=== PATIENT | female | born 1945 | race Caucasian/White ===

== ENCOUNTER 2018-01-28 20:51 | Emergency (ER) | payer OTHER ==
[~2018-01-28 20:51] MED LIST: POLYTRIM O200 GTT/BO OPH
--- NOTE | 2018-01-28 21:50 | RADIOLOGY REPORT ---
EXAMINATION: XR FOOT, LEFT CLINICAL INFORMATION: Stress fracture. Pain to the outer aspect of left foot. No injury. COMPARISON: None TECHNIQUE: AP, lateral, and oblique views of the left foot. FINDINGS: There is deformity of the distal shaft of the first metatarsal. Question prior fracture or hallux valgus repair. 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 No acute fracture seen. Normal tarsal metatarsal alignment. No periosteal reaction or cortical thickening to suggest stress fracture. IMPRESSION: No acute osseous abnormality identified. Deformity of the distal shaft of the first metatarsal, possibly from prior fracture or hallux valgus repair.
[2018-01-28] MEDS ORDERED: CLARITIN10 M1 PO (22:30)
--- NOTE | 2018-01-28 22:57 | ED ANKLE/FOOT INJURY COMPLAINT ---
History of Present Illness General Chief Complaint: Lower Extremity Problems Stated Complaint: FOOT PAIN/SWELLING X2DAYS Source: patient Exam Limitations: no limitations Vital Signs & Intake/Output Vital Signs & Intake/Output Vital Signs Date Time Temp Pulse Resp B/P B/P Pulse O2 O2 Flow FiO2 Mean Ox Delivery Rate 01/28 2315 134/78 01/28 2248 98.0 64 18 97 Room Air 01/28 2116 98.8 82 20 132/79 98 Allergies Coded Allergies: Penicillins (FULL BODY SWELLING 01/28/18) aspirin (GI BURNING, CRAMPING, VOMITING 01/28/18) lidocaine (HIVES 01/28/18) tetanus and diphtheria toxoids (LOCALIZED SWELLING 01/28/18) Reconcile Medications Loratadine (Claritin) 10 MG TABLET 1 TAB PO DAILY ALLERGIES (Reported) Tylenol With Codeine (Tylenol With Codeine #3 Tablet) 300 MG-30 MG TABLET 1 TAB PO Q4-6 PRN PRN pain Triage Note: PER PT 2 DAY HX OF L FOOT PAIN NOW SWELLING REPORTS OUTER ASPECT BY 5TH TOE DENIES INJURY Triage Nurses Notes Reviewed? yes Duration: day(s): (2-3), changing over time, continues in ED, getting worse Timing: single episode today Severity: mild, moderate Severity Numbers: 7 Pain/Injury Location: Left: Foot. Method of Injury: unknown No Modifying Factors: none Associated Symptoms: swelling LMP (ages 10-50): unknown : No Patient currently breastfeeds: No HPI: 72-year-old female no past medical history presents for evaluation of pain in her left foot. Patient states symptoms started about 2 days ago and has been getting worse. The pain is located the dorsum of the foot over the first metatarsal. There was no known trauma or triggering event. The pain is worse with movement but she is able to walk and bear weight. She did not take any medicine for this. No fevers spreading redness numbness or tingling. No knee pain or hip pain. (Germán Berg) Past History Travel History Traveled to [place] past 21 day No Medical History Any Pertinent Medical History? see below for history Neurological: NONE EENT: NONE Cardiovascular: NONE Respiratory: NONE Gastrointestinal: NONE Hepatic: NONE Renal: NONE Musculoskeletal: NONE Psychiatric: NONE Endocrine: NONE Surgical History Surgical History: non-contributory Psychosocial History What is your primary language Libyan Tobacco Use: Never used Family History Hx Contributory? No (Germán Berg) Review of Systems Review of Systems Constitutional: Reports: no symptoms. EENTM: Reports: no symptoms. Respiratory: Reports: no symptoms. Cardiovascular: Reports: no symptoms. GI: Reports: no symptoms. Genitourinary: Reports: no symptoms. Musculoskeletal: Reports: see HPI, joint pain, joint swelling. Skin: Reports: no symptoms. Neurological/Psychological: Reports: no symptoms. Hematologic/Endocrine: Reports: no symptoms. Immunologic/Allergic: Reports: no symptoms. All Other Systems: Reviewed and Negative (Germán Berg) Physical Exam Physical Exam General Appearance: well developed/nourished, no apparent distress, alert, awake Head: atraumatic, normal appearance Eyes: Bilateral: normal appearance, EOMI. Ears, Nose, Throat: hearing grossly normal Neck: normal inspection, supple, full range of motion Cardiovascular/Respiratory: no respiratory distress Back: normal inspection, normal range of motion Leg/Knee/Thigh Left: normal range of motion, normal inspection Leg/Knee/Thigh Right: normal range of motion, normal inspection Ankle Left: THERE IS PAIN TO PALPATION IN THE AREA OF THE LATERAL MALLEOLUS. mILD SOFT TISSUE SWELLING. nO BRUISING NO CREPITUS. fULL RANGE OF MOTION OF THE ANKLE IS INTACT Ankle Right: normal inspection, normal range of motion Foot Left: THERE IS MILD SOFT TISSUE SWELLING OF THE DORSUM OF THE FOOT. tHERE IS TENDERNESS TO PALPATION OVER THE FIRST AND SECOND METATARSALS. fULL RANGE OF MOTION OF THE FOOT IS INTACT WITH PAIN. nEUROVASCULAR SUPPLY INTACT Foot Right: normal inspection, normal range of motion Neuro/Vascular: normal motor function, normal sensation Tendon: normal tendon function Psychiatric: awake, alert, oriented x 3 Skin: intact, normal color, warm/dry (Germán Berg) Progress Differential Diagnosis: cellulitis, septic arthritis, gout, fracture, dislocation, sprain, contusion Plan of Care: Orders Procedure Date/time Status Durable Medical Equipment 01/28 2229 Active Patient seen and evaluated. She has pain and mild soft tissue swelling of the dorsum of the foot and lateral malleolus. No known trauma. Neurovascular supply is intact. Patient was medicated with Tylenol x-rays of the foot and ankle were obtained and do not show any acute fractures. Advised rest ice elevation compression. Patient was given crutches is able to walk steady gait with them. Continue Tylenol as needed. Tylenol with codeine as needed for severe pain only. Follow-up with primary care doctor in podiatry discussed return precautions patient agrees the plan. Case discussed with Dr. Hurtado he agrees. Diagnostic Imaging: Viewed by Me: Radiology Read. Discussed w/RAD: Radiology Read. Radiology Impression: PATIENT: JONATHAN RENEE PRESENT AGE: 72 PATIENT ACCOUNT NO: [id number] : 46 LOCATION: [facility] ORDERING PHYSICIAN: Germán HERNÁNDEZ SERVICE DATE: 01/28/18 EXAM TYPE: RAD - XRY- ANKLE 3 OR MORE VIEWS L EXAMINATION: LEFT ANKLE 3 VIEWS CLINICAL INFORMATION: Pain. Swelling. COMPARISON: Same day left foot radiographs. TECHNIQUE: AP, lateral, oblique views of the left ankle were obtained. FINDINGS: There are no fractures or dislocations. There is mild soft tissue swelling overlying the lateral malleolus. No ankle joint effusion is identified. There is a small plantar surface calcaneal spur. IMPRESSION: Mild soft tissue swelling without acute fracture. Small plantar surface calcaneal spur. DICTATED BY: Bryson Alejandre MD DATE/TIME DICTATED:01/28/182303 LUBRICATING SPECIALIST:JOSE E DATE/TIME TRANSCRIBED:01/28/182303 CONFIDENTIAL, DO NOT COPY WITHOUT APPROPRIATE AUTHORIZATION., PATIENT: JONATHAN RENEE PRESENT AGE: 72 PATIENT ACCOUNT NO: [id number] : 46 LOCATION: [facility] ORDERING PHYSICIAN: Yaya Hurtado MD SERVICE DATE: 01/28/18 EXAM TYPE: RAD - XRY- FOOT COMPLETE, LEFT EXAMINATION: XR FOOT, LEFT CLINICAL INFORMATION: Stress fracture. Pain to the outer aspect of left foot. No injury. COMPARISON: None TECHNIQUE: AP, lateral, and oblique views of the left foot. FINDINGS: There is deformity of the distal shaft of the first metatarsal. Question prior fracture or hallux valgus repair. 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 No acute fracture seen. Normal tarsal metatarsal alignment. No periosteal reaction or cortical thickening to suggest stress fracture. IMPRESSION: No acute osseous abnormality identified. Deformity of the distal shaft of the first metatarsal, possibly from prior fracture or hallux valgus repair. DICTATED BY: Casey Curry MD DATE/TIME DICTATED:2144 LUBRICATING SPECIALIST:JOSE E DATE/TIME TRANSCRIBED:01/28/182144 CONFIDENTIAL, DO NOT COPY WITHOUT APPROPRIATE AUTHORIZATION. (Germán Berg) Departure Departure Disposition: HOME OR SELF CARE Condition: Stable Clinical Impression Primary Impression: Left foot pain Referrals: Getachew JIMENEZ,Prasanna Duggan MD,Tano Kapoor (PCP/Family) Additional Instructions: Rest, keep foot elevated. Apply ice for 15-20 minutes every few hours. Tylenol or ibuProfen as needed for pain. Tylenol with codeine for severe pain only. walk with crutches. Make a follow-up with Dr. Chilel contract administration specialist as soon as possible. Monitor symptoms return with any concerns. Departure Forms: Customer Survey General Discharge Information Prescriptions: Current Visit Scripts Tylenol With Codeine (Tylenol With Codeine #3 Tablet) 1 TAB PO Q4-6 PRN PRN pain #10 TAB (Germán Berg) PA/LICENSED ELECTRICIAN Co-Sign Statement Statement: ED Attending supervision documentation- [] I saw and evaluated the patient. I have also reviewed all the pertinent lab results and diagnostic results. I agree with the findings and the plan of care as documented in the PA's/LICENSED ELECTRICIAN's documentation. [x] I have reviewed the ED Record and agree with the PA's/LICENSED ELECTRICIAN's documentation. [] Additions or exceptions (if any) to the PAs/LICENSED ELECTRICIAN's note and plan are summarized below: [] (Genesis PETERSEN,Yaya Kapoor)
--- NOTE | 2018-01-28 23:08 | RADIOLOGY REPORT ---
EXAMINATION: LEFT ANKLE 3 VIEWS CLINICAL INFORMATION: Pain. Swelling. COMPARISON: Same day left foot radiographs. TECHNIQUE: AP, lateral, oblique views of the left ankle were obtained. FINDINGS: There are no fractures or dislocations. There is mild soft tissue swelling overlying the lateral malleolus. No ankle joint effusion is identified. There is a small plantar surface calcaneal spur. IMPRESSION: Mild soft tissue swelling without acute fracture. Small plantar surface calcaneal spur.
[2018-01-28 23:15] VITALS: BP 134/78
[2018-01-28] MEDS ORDERED: TYLENOL WITH C1 EACH PO (23:18)
== END 2018-01-28 23:34 ==
LOC: ERH 20:51
DX: M79.672 Pain in left foot (principal)
CPT/HCPCS: 73610-LT; 73630-LT